=== PATIENT | female | born 2005 | race Hispanic/Latino ===

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

== ENCOUNTER 2025-01-17 13:00 | Emergency (ER) | payer MEDICAID ==
[~2025-01-17] VITALS: Ht 165.1 cm; Wt 74.8 kg
--- NOTE | 2025-01-17 13:05 | ERN ---
ED Note History of Present Illness Stated Complaint: SORETHROAT , FEVER Chief Complaint: Sore Throat Time Seen by MD: 13:01 Dictation: Patient is a 19-year-old female here with sore throat painful swallowing and low-grade fever since yesterday. No voice changes no rhinitis no cough. No primary care doctor did not taken anything prior to arrival for pain. Allergies: Coded Allergies: No Known Drug Allergies (Unverified Allergy, Unknown, 11/03/23) Past Medical History Past Medical History: No Pertinent History Surgical History: None LMP: Jan 03, 2025 : 1 Para: 0 Aborts: 0 RN Note Reviewed/Agreed w/PFSH: Yes Review of System Dictation CONSTITUTIONAL: Negative except for HPI low-grade fever HEAD/FACE: Negative except for HPI EENT: Negative except for HPI sore throat with painful swallowing RESPIRATORY: Negative except for HPI GASTROINTESTINAL/ABDOMINAL: Negative except for HPI GENITOURINARY: Negative except for HPI MUSCULOSKELETAL: Negative except for HPI INTEGUMENTARY: Negative except for HPI NEUROLOGICAL/PSYCH: Negative except for HPI HEMATOLOGIC/LYMPHATIC: Negative except for HPI All Systems Negative, Except as noted above. 13 point review of systems assessed and all negative except for above. Initial Vital Sign VS Vital Signs Date Time Temp Pulse Resp B/P (MAP) Pulse Ox O2 Delivery O2 Flow Rate FiO2 01/17/25 13:00 99.7 150 20 161/93 99 Room Air 0 01/17/25 13:38 21 Physical Exam Dictation Vital Signs reviewed General Appearance: Alert, oriented x 3, moderate acute distress, well developed, nourished. Head and Face: non-traumatic. Eyes: PERRL, pink conjunctivas, eyelid no trauma, anterior chamber with arcus senilis. Ears: Pinnas intact and no signs of trauma or erythema ear canals clear and no discharge TM no erythema Nose: No discharge, no bleeding. Oropharynx: Mouth normal, tongue pink, pharynx clear,no erythema, tonsils 3/4 bilaterally and cryptic, no abscesses noted, mucous membrane moist uvula midline, voice is clear Neck: Supple, non-tender, no thyromegaly, no masses, no JVD, no bruits Breast:Deferred Chest:No tenderness, no crepitus, no paradoxical movement, no retractions Lungs:Clear, well-ventilated, symmetric, no rales, no wheezing, no rhonchi, no s tridor, good breath sounds bilaterally Heart: Regular rate, regular rhythm, no murmur, no gallops Vascular: no peripheral edema, Abdomen: Soft, positive bowel sounds, nondistended, no guarding, nontender, no rebound, no masses no hepatomegaly, no splenomegaly, no Camargo's sign, no hernias. Rectal: Deferred Genital: Deferred Neurological: Normal speech, motor function intact, sensory function intact Musculoskeletal: Neck nontender, full range of motion, back nontender, full range of motion, Extremities: nontender, full range of motion Skin: Color pink, dry, no turgor, no rash, no lacerations, no abrasions, no contusions. Lymphatic: Deferred Results (Laboratory/Radiology) Laboratory/Radiology Laboratory Tests Test 01/17/25 13:04 Group A Streptococcus Rapid positive (NEGATIVE) *A Labs Reviewed?: Yes ED Course ED Course Orders Procedure Category Date Status Time Acetaminophen 500mg PHA 01/17/25 Complete Tab (Tylenol 500mg T 13:30 Rapid (Group A Strep) LAB 01/17/25 Complete 13:03 Current Medications Medications (Trade) Dose Ordered Sig/[place] Route PRN Reason Start Time Stop Time Status Last Admin Dose Admin Acetaminophen (TYLenol 500MG TAB) 1,000 mg ONCE ONCE PO 01/17/25 13:30 01/17/25 13:31 DC 01/17/25 13:29 Vital Signs Date Time Temp Pulse Resp B/P (MAP) Pulse Ox O2 Delivery O2 Flow Rate FiO2 01/17/25 13:38 101.1 126 18 133/74 98 Room Air* 0 21 01/17/25 13:29 99.7 01/17/25 13:00 99.7 150 20 161/93 99 Room Air 0 Medical Decision Making [facility] 1420/PATIENT HAS POSITIVE STREP SWAB DISCHARGED HOME WITH A AUGMENTIN 875 FOR 10 DAYS B.I.D. TOLD FOLLOW UP WITH HER PRIMARY CARE DX & DISP Disposition: Discharge Departure Impression: Primary Impression: Acute streptococcal tonsillitis Condition: Stable Scripts Amoxicillin/Potassium Clav (Amox Tr-K Clv 875-125 mg Tab) 875 Mg-125 Mg Tablet 1 EACH PO BID for 10 Days, #20 TAB 0 Refills Prov: BRODY GARIBAY P[employer] OPERATOR HELPER 01/17/25 Referrals: DIANE HOUGH MD (PCP) Time of Disposition: 14:18 I have reviewed the case, and I agree with, Diagnosis and Plan BRODY GARIBAY [employer] OPERATOR HELPER Jan 17, 2025 13:05
[2025-01-17 13:29] VITALS: TEMP 99.7
[2025-01-17 13:38] VITALS: BP 133/74; PULSE 126; RESP 18; TEMP 101.2; O2SAT 98
[2025-01-17] MEDS ORDERED: AMOX1TAB16 PO (14:19)
== END 2025-01-17 14:27 | disposition home or self-care (01) ==
LOC: EDH 13:00
DX: J03.00 Acute streptococcal tonsillitis, unspecified (principal)
CPT/HCPCS: 87880; 99283